=== PATIENT | female | born 1990 | race Caucasian/White ===

== ENCOUNTER 2017-03-21 10:45 | Day surgery (SDC) | payer OTHER ==
[~2017-03-21 10:45] MED LIST: ACETAMINOPHEN 500 MG TAB PO ONE; BUPIVACAINE/EPI 0.25% 30 ML SDV ONE; CEFAZOLIN 2 GM/DEXTR 100 ML IV ONE; EPINEPHrine 30 MG/30 ML MDV ONE; SCOPOLAMINE HYDROBROMIDE 1.5 MG PATCH TD ONE
[2017-03-21] MEDS ORDERED: LR 1,000 ML IV ONE (11:12)
[2017-03-21] MEDS ORDERED: ACETAMINOPHEN 500 MG TAB ONE (11:22)
[2017-03-21] MEDS ORDERED: PREGABALIN 150 MG CAP ONE (11:23)
[2017-03-21] MEDS ORDERED: CEFAZOLIN 2 GM/DEXTROSE/100 ML BAG IV ONE (11:24)
[2017-03-21] MEDS ORDERED: SCOPOLAMINE HYDROBROMIDE 1.5 MG PATCH TD ONE (11:27)
[2017-03-21] MEDS ORDERED: MIDAZOLAM 2 MG/2 ML VIAL ONE (12:47)
[2017-03-21] MEDS ORDERED: fentaNYL 100 MCG/2 ML INJ ONE ×3 (13:09→16:31)
[2017-03-21] MEDS ORDERED: PROPOFOL/EMULSION 500 MG/50 ML BOTTLE IV ONE (13:10)
[2017-03-21] MEDS ORDERED: ROCURONIUM 100 MG/10 ML VIAL ONE (13:13)
[2017-03-21] MEDS ORDERED: BUPIVACAINE 0.25% 30 ML SDV ONE (13:59)
[2017-03-21] MEDS ORDERED: HYDROmorphONE/DILAUDID 2 MG/ML INJ ONE (15:22)
[2017-03-21] MEDS ORDERED: PHENYLEPHRINE HCL 100 MCG/ML SYR ONE (15:26)
[2017-03-21] MEDS ORDERED: KETOROLAC 30 MG/1 ML SDV ONE (16:22)
[2017-03-21] MEDS ORDERED: OXYCODONE/APAP 5/325 TAB ONE (17:05)
[2017-03-21] MEDS ORDERED: ONDANSETRON 4 MG/2 ML VIAL ONE (17:36)
== END 2017-03-21 18:18 | disposition home or self-care (01) ==
LOC: FSGY 10:45 → EEVIPCON 12:00 → FSGY 18:18
PROVIDERS: ATTEND Orthopaedic Surgery Sports Medicine
PROC: 0SQB4ZZ Repair Left Hip Joint, Percutaneous Endoscopic Approach (ICD-10-PCS; principal; 2017-03-21 12:00)
DX: M25.852 Other specified joint disorders, left hip (principal); E66.9 Obesity, unspecified; E03.9 Hypothyroidism, unspecified; F41.8 Other specified anxiety disorders
CPT/HCPCS: 29916; 76001; C1769; C1713; J0690; J1170; J1885; J2250; J2370; J2405; J2704; J3010